=== PATIENT | male | born 1980 | race Caucasian/White ===

== ENCOUNTER → 2024-04-22 11:36 | Outpatient (REF) | payer OTHER, SELFPAY | LOC: RAD 11:36 | PROVIDERS: FAMILY PHYSICIAN Physician Assistant Medical | DX: D41.01 Neoplasm of uncertain behavior of right kidney (principal) | CPT/HCPCS: 74178; Q9967 ==

== ENCOUNTER → 2024-05-01 08:30 | Outpatient (REF) | payer OTHER, SELFPAY | LOC: HWRAD 08:30 | PROVIDERS: ATTENDING PHYSICIAN Physician Assistant Medical | DX: R35.0 Frequency of micturition (principal) | CPT/HCPCS: 76770 ==

== ENCOUNTER → 2024-06-06 08:44 | Outpatient (REF) | payer OTHER, SELFPAY | LOC: HWRAD 08:44 | PROVIDERS: FAMILY PHYSICIAN Physician Assistant Medical | DX: Z01.811 Encounter for preprocedural respiratory examination (principal); D41.01 Neoplasm of uncertain behavior of right kidney | CPT/HCPCS: 71046 ==

== ENCOUNTER → 2024-07-07 10:45 | Outpatient (REF) | payer OTHER, SELFPAY | LOC: RAD 10:45 | PROVIDERS: FAMILY PHYSICIAN Physician Assistant Medical | DX: D40.11 Neoplasm of uncertain behavior of right testis (principal) | CPT/HCPCS: 76870; 93976 ==